=== PATIENT | female | born 1975 | race Caucasian/White ===

== ENCOUNTER 2017-05-02 20:57 | Emergency (ER) | payer OTHER ==
[~2017-05-02] VITALS: Ht 157.5 cm; Wt 106.1 kg
[~2017-05-02 20:57] MED LIST: PERCOCET 5/31 TABLET PO; PRILOSEC20 MG PO; VALIUM5 MG PO; ZOFRAN ODT4 MG PO
[2017-05-02 21:09] VITALS: BP 152/104
[2017-05-03] MEDS ORDERED: NAPROSYN500 MG PO (00:12)
[2017-05-03] MEDS ORDERED: ULTRAM50 MG PO (00:12)
== END 2017-05-03 00:40 | disposition home or self-care (01) ==
LOC: EME 20:57
DX: S83.92XA Sprain of unspecified site of left knee, initial encounter (principal); F17.200 Nicotine dependence, unspecified, uncomplicated; I10 Essential (primary) hypertension; W01.0XXA Fall on same level from slipping, tripping and stumbling without subsequent striking against object, initial encounter; Y93.F2 Activity, caregiving, lifting
CPT/HCPCS: 73564; 99281; 99284

== ENCOUNTER 2018-01-29 19:04 | Emergency (ER) | payer OTHER ==
[~2018-01-29] VITALS: Ht 160 cm; Wt 107.4 kg
[~2018-01-29 19:04] MED LIST changes: +NAPROSYN500 MG PO; +ULTRAM50 MG PO
[2018-01-29] MEDS ORDERED: NORCO 5/3251 TABLET PO (20:28)
[2018-01-29] MEDS ORDERED: VALIUM5 MG PO (20:28)
[2018-01-29] MEDS ORDERED: MOTRIN600 MG PO (20:28)
[2018-01-29 20:43] VITALS: BP 154/84
== END 2018-01-29 20:46 | disposition home or self-care (01) ==
LOC: EME 19:04
DX: M75.01 Adhesive capsulitis of right shoulder (principal); I10 Essential (primary) hypertension; Z91.09 Other allergy status, other than to drugs and biological substances
CPT/HCPCS: 73030; 99281; 99283; J1100